=== PATIENT | female | born 1995 ===

== ENCOUNTER 2017-08-22 17:04 | Observation (INO) | payer OTHER ==
--- NOTE | 2017-08-22 17:55 | C.PDOC ---
History Of Present Illness 22-YEAR-OLD FEMALE, REFERRED BY DR RODRIGUEZ FOR EVAL. WORSENING VB X 4 DAYS. S/P TOP 05/2017. PS HAS BEEN DOING WELL UNTIL NOW. LMP 08/06. EVAL @ [facility] [place] 08/20, SP LABS "HGB 10" AND DC. VB INITIALLY RESOLVED YEST BUT RECURRED "MORE SEVERE THAN BEFORE" TODAY. +NEAR SYNCOPE. NPO SINCE 1230 EXAM +PALLOR, MILD DIST NONTOXIC ABD NEG WARM DRY REMAINDER NEG Time Seen by Provider: 08/22/17 17:43 History Per: Patient History/Exam Limitations: no limitations Past Medical History Reviewed: Historical Data, Nursing Documentation, Vital Signs Vital Signs: Last Vital Signs Temp 98.7 F 08/23/17 19:45 Pulse 99 H 08/23/17 19:45 Resp 20 08/23/17 19:45 BP 118/77 08/23/17 19:45 Pulse Ox 99 08/23/17 19:45 Family History: States: No Known Family Hx Review Of Systems Constitutional: Negative for: Fever Cardiovascular: Positive for: Light Headedness. Negative for: Chest Pain Respiratory: Negative for: Shortness of Breath Gastrointestinal: Negative for: Vomiting Genitourinary: Positive for: Vaginal Bleeding Musculoskeletal: Negative for: Back Pain Neurological: Negative for: Numbness, Headache, Dizziness Physical Exam - Physical Exam Appears: Non-toxic, No Acute Distress (MILD DISTRESS) Skin: Warm, Dry, Pale, No Rash Head: Normacephalic Eye(s): bilateral: PERRL Nose: Normal Oral Mucosa: Moist Lips: Normal Appearing Neck: Normal ROM Cardiovascular: Rhythm Regular, No Murmur Respiratory: Normal Breath Sounds, No Accessory Muscle Use Gastrointestinal/Abdominal: Soft, No Tenderness Extremity: Normal ROM, No Deformity, No Swelling Neurological/Psych: Oriented x3, Normal Speech ED Course And Treatment - Laboratory Results Result Diagrams: 08/23/17 16:24 08/22/17 18:43 Progress - Data Reviewed Data Reviewed: Lab, Diagnostic imaging Disposition Counseled Patient/Family Regarding: Diagnosis - Disposition Disposition: HOSPITALIZED Disposition Time: 19:00 Condition: STABLE - POA Present On Arrival: None - Clinical Impression Clinical Impression: DUB (dysfunctional uterine bleeding) - Scribe Statement The provider has reviewed the documentation as recorded by the Scribe (Reg Agarwal) All medical record entries made by the Scribe were at my direction and personally dictated by me. I have reviewed the chart and agree that the record accurately reflects my personal performance of the history, physical exam, medical decision making, and the department course for this patient. I have also personally directed, reviewed, and agree with the discharge instructions and disposition. Physician Patient Turnover Patient Signed Over To: Yandel Garland DO Handoff Comments: FU LABS, CT, US, DISPO
[2017-08-22] MEDS ORDERED: Sodium Chloride 0.9% 1,000 ML IV ONE (18:15)
[2017-08-22 18:47] LABS: BASO % 0.4 % (0.0-2.0); EOS % 0.1 % (0.0-4.0); HEMOGLOBIN 9.3 g/dL (11.0-16.0); LYMPH # 2.4 K/uL (1.0-4.3); LYMPH % 20.9 % (20.0-40.0); MEAN CELL VOLUME 70.4 fL (81.0-99.0); MEAN CORPUSCULAR HEMOGLOBIN 22.5 pg (27.0-31.0); MEAN CORPUSCULAR HGB CONC 31.9 g/dL (33.0-37.0); MEAN PLATELET VOLUME 8.2 fL (7.2-11.7); MONO # 0.5 K/uL (0.0-0.8); MONO % 4.6 % (0.0-10.0); NEUT # 8.4 K/uL (1.8-7.0); NRBC % 0.1 % (0.0-2.0); RBC 4.16 Mil/uL (3.80-5.20); RED CELL DISTRIBUTION WIDTH 18.4 % (11.5-14.5); WHITE BLOOD COUNT 11.3 K/uL (4.8-10.8)
[2017-08-22 18:55] LABS: INR 1.1; PROTHROMBIN TIME 11.8 SECONDS (9.7-12.2)
[2017-08-22] MEDS ORDERED: Iodixanol 320 MG/ML 100 ML BOTTLE IV ONE (18:56)
[2017-08-22 19:01] LABS: ALB/GLOB RATIO 1.1 (1.0-2.1); ALBUMIN 3.5 g/dL (3.5-5.0); CALCIUM 8.7 mg/dl (8.6-10.4); GFR AFRICAN-AMERICAN > 60; GFR NON-AFRICAN AMERICAN > 60
[2017-08-22 19:05] LABS: ALT/SGPT 16 U/L (9-52); AST/SGOT 34 U/L (14-36); BLOOD UREA NITROGEN 5 mg/dL (7-17)
--- NOTE | 2017-08-22 21:03 | CT ---
EXAM: CT Abdomen and Pelvis With Intravenous Contrast EXAM DATE/TIME: Exam ordered 08/22/2017 5:58 PM CLINICAL HISTORY: 22 years old, female; Pain; Abdominal pain; Flank; Left lower quadrant (llq); Additional info: Vag bleed, free fluid TECHNIQUE: Axial computed tomography images of the abdomen and pelvis with intravenous contrast. All CT scans at this facility use one or more dose reduction techniques, viz.: automated exposure control; ma/kV adjustment per patient size (including targeted exams where dose is matched to indication; i.e. head); or iterative reconstruction technique. Coronal and sagittal reformatted images were created and reviewed. CONTRAST: 100 mL of visipaque n320 administered intravenously. COMPARISON: No relevant prior studies available. FINDINGS: Lung bases: Unremarkable. No mass. No consolidation. ABDOMEN: Liver: Unremarkable. No mass. Gallbladder and bile ducts: Unremarkable. No calcified stones. No ductal dilation. Pancreas: Unremarkable. No mass. No ductal dilation. Spleen: Unremarkable. No splenomegaly. Adrenals: Unremarkable. No mass. Kidneys and ureters: Contrast is being excreted by both kidneys. A 7 mm simple cyst is noted in the midportion of the right kidney. No hydronephrosis. Stomach and bowel: Moderate to large amount of stool in the colon. No mucosal thickening. PELVIS: Appendix: No findings to suggest acute appendicitis. Bladder: The bladder measures 11.7 x 10 by 6 cm for a volume of 350 cc. Reproductive: Hyperdensity is noted within the uterus A small amount of fluid surrounds the left ovary. The left ovary measures approximately 3.5 x 2 by 2.6 cm. The right ovary measures 1.7 x 1.7 x 1.8 cm. The lower uterine segment is prominent. ABDOMEN and PELVIS: Intraperitoneal space: Unremarkable. No free air. No significant fluid collection. Bones/joints: No acute fracture. No dislocation. Soft tissues: There is a 1.8 cm umbilical hernia containing fat. Vasculature: Unremarkable. No abdominal aortic aneurysm. Lymph nodes: Unremarkable. No enlarged lymph nodes. IMPRESSION: 1. Hyperdensity noted within the midportion of the endometrial canal. This could represent blood products or an area of enhancement. Correlation with pelvic ultrasound recommended. 2. 7 mm simple cyst in the midportion right kidney. 3. 1.8 cm umbilical hernia containing fat. No evidence of strangulation..
--- NOTE | 2017-08-22 21:38 | US ---
EXAM: US Pelvis Complete, Transabdominal CLINICAL HISTORY: 22 years old, female; Signs and symptoms; Other: Vag bleed; Additional info: Vb TECHNIQUE: Real-time transabdominal pelvic ultrasound (complete) with image documentation. COMPARISON: No relevant prior studies available. FINDINGS: Uterus/cervix: The uterus measures 11 x 3.3 x 5 cm.. TThe endometrial stripe is heterogeneous in appearance and measures 11 mm in thickness.. No myometrial mass. Right ovary: The right ovary measures 2.7 by 2 x 2 centimeters. Blood flow seen in the right ovary on color Doppler and pulsed Doppler examination. Left ovary: The left ovary is not seen as a separate structure. Free fluid: No free fluid. Bladder: Unremarkable as visualized. Wall is normal thickness for degree of distention. IMPRESSION: 1. Heterogeneous appearance of the endometrial stripe. The endometrium is better characterized with endovaginal ultrasound. See below. 2. nonvisualization of the left ovary. EXAM: US Pelvis, Transvaginal EXAM DATE/TIME: Exam ordered 08/22/2017 5:57 PM CLINICAL HISTORY: 22 years old, female; Signs and symptoms; Other: Vag bleed; Additional info: Vb TECHNIQUE: Real-time transvaginal pelvic ultrasound (complete) with image documentation. Transvaginal imaging was used for better evaluation of the endometrium and adnexa. COMPARISON: CT - ABD PELVIS IV CONTRAST ONLY 2017-08-22 20:09 FINDINGS: Uterus/cervix: The uterus is not well-seen in a craniocaudal/sagittal dimension. On CT scan, the uterine fundus and body are displaced superiorly up out of the pelvis which likely accounts for this. There is a subendometrial cyst seen in the uterine fundus. Nabothian cyst is present within the cervix. . The endometrial stripe measures 2 cm in thickness. An area of vascularity is noted within the endometrium on color Doppler examination. The endometrial stripe is heterogeneous in appearance with cystic areas present Right ovary: The right ovary measures 2.3 x 2 x 2 cm. Blood flow seen in the radiographic color Doppler examination.. Left ovary: The left ovary measures 3.4 x 2.5 by 3.3 cm and contains a 2 cm simple cyst. Blood flow is seen in the left ovary on color Doppler examination. Free fluid: There is a small amount of free fluid in the posterior cul-de-sac.. Bladder: Empty bladder which cannot be evaluated with this probe. IMPRESSION: 1. Abnormally thickened, cystic appearing endometrium with evidence of increased vascularity. In the clinical setting of a serous sanguinous vaginal discharge 7 weeks post D&C, retained products of conception and infection are primary consideration. Molar is unlikely with a beta hCG of 4. Posttraumatic arteriovenous malformation might be considered but would be unlikely to be associated with serous vaginal discharge.THIS REPORT CONTAINS FINDINGS THAT MAY BE CRITICAL TO PATIENT CARE. The findings were verbally communicated via telephone conference with Vivain Brown at 9:38 PM EDT on 08/22/2017. The findings were acknowledged and understood.
--- NOTE | 2017-08-22 22:04 | CP.PCM.HP ---
History of Present Illness - History of Present Illness History of Present Illness: excessive vaginal bleeding 22yo with hx of suction D&C of 10 wk 05/2017. no bleeding until started over the weekend, now gushing blood intermittently. Present on Admission - Present on Admission Any Indicators Present on Admission: No Review of Systems - Constitutional Constitutional: absent: Fever - Cardiovascular Additional comments: rr - Respiratory Respiratory: absent: Dyspnea on Exertion - Gastrointestinal Gastrointestinal: Abdominal Pain, Bloating - Genitourinary Genitourinary: As Per HPI Past Patient History - Past Social History Smoking Status: Never Smoked - HEMATOLOGICAL/ONCOLOGICAL Hx Anemia: Yes - PSYCHIATRIC Hx Substance Use: No - SURGICAL HISTORY Hx Surgeries: Yes Other/Comment: ELECTIVE T.O.P. 06/12/2017 Meds Allergies/Adverse Reactions: Allergies Allergy/AdvReac Type Severity Reaction Status Date / Time No Known Allergies Allergy Verified 08/22/17 18:43 Physical Exam - Constitutional Appears: Non-toxic, No Acute Distress - Head Exam Head Exam: NORMAL INSPECTION, NORMOCEPHALIC - Eye Exam Eye Exam: Normal appearance - Neck Exam Neck exam: Positive for: Normal Inspection - Respiratory Exam Respiratory Exam: NORMAL BREATHING PATTERN - GI/Abdominal Exam GI & Abdominal Exam: Normal Bowel Sounds, Soft Additional comments: mildly tender - Exam Speculum exam: Vaginal Bleeding Bimanual exam: Uterine Enlargement, Uterine Tenderness - Extremities Exam Extremities exam: Positive for: normal inspection Results - Vital Signs Recent Vital Signs: Last Vital Signs Temp Pulse 93 H 08/22/17 17:57 Resp 16 08/22/17 17:57 BP 102/56 L 08/22/17 17:57 Pulse Ox 100 08/22/17 17:57 - Labs Result Diagrams: 08/22/17 18:43 08/22/17 18:43 Labs: Laboratory Results - last 24 hr 08/22/17 08/22/17 08/22/17 18:34 18:43 18:43 WBC 11.3 H RBC 4.16 Hgb 9.3 L Hct 29.3 L MCV 70.4 L MCH 22.5 L MCHC 31.9 L RDW 18.4 H Plt Count 360 MPV 8.2 Neut % (Auto) 74.0 Lymph % (Auto) 20.9 [place] % (Auto) 4.6 Eos % (Auto) 0.1 Baso % (Auto) 0.4 Neut # (Auto) 8.4 H Lymph # (Auto) 2.4 [place] # (Auto) 0.5 Eos # (Auto) 0.0 Baso # (Auto) 0.0 PT 11.8 INR 1.1 APTT 20 L Sodium Potassium Chloride Carbon Dioxide Anion Gap BUN Creatinine Est GFR ( Amer) Est GFR (Non-Af Amer) Random Glucose Calcium Total Bilirubin AST ALT Alkaline Phosphatase Total Protein Albumin Globulin Albumin/Globulin Ratio Beta HCG, Quant Blood Type O POSITIVE Antibody Screen Negative 08/22/17 18:43 WBC RBC Hgb Hct MCV MCH MCHC RDW Plt Count MPV Neut % (Auto) Lymph % (Auto) [place] % (Auto) Eos % (Auto) Baso % (Auto) Neut # (Auto) Lymph # (Auto) [place] # (Auto) Eos # (Auto) Baso # (Auto) PT INR APTT Sodium 136 Potassium 4.1 Chloride 103 Carbon Dioxide 22 Anion Gap 16 BUN 5 L Creatinine 0.5 L Est GFR ( Amer) > 60 Est GFR (Non-Af Amer) > 60 Random Glucose 100 Calcium 8.7 Total Bilirubin 0.4 AST 34 ALT 16 Alkaline Phosphatase 65 Total Protein 6.7 Albumin 3.5 Globulin 3.2 Albumin/Globulin Ratio 1.1 Beta HCG, Quant 4.45 Blood Type Antibody Screen Assessment & Plan - Assessment and Plan (Free Text) Assessment: excessive vaginal bleeding Plan: differential retained POC, endometritis, subinvolution of implantation site retained POC is lower on the differential as patient reports suction D&C at 10 weeks done under ultrasound guidance at outside facility Monitor inpatient Regular diet until AM, NPO, ivf bedrest except bathroom priveleges iv abx for infection prophylaxis iv estrogen and provera reassess in AM, possibility of still needing D&C but prefer under hysteroscopy and patient stabilizes, if bleeding stabilizes and only clots can consider uterotonics - Date & Time Date: 08/22/17 Time: 22:25
[2017-08-22] MEDS ORDERED: Ciprofloxacin 400mg/200ml D5W 400 MG/200 ML BAG IVPB ONE (22:10)
[2017-08-22] MEDS: Ciprofloxacin 400mg/200ml D5W 400 MG/200 ML BAG IVPB SCH (22:20)
[2017-08-22] MEDS: Sodium Chloride 0.9% 1,000 ML IV SCH (22:21)
[2017-08-22] MEDS: metroNIDAZOLE IV 500 mg/100 ml 500 MG/100 ML BAG IVPB SCH (23:39)
[2017-08-22] MEDS ORDERED: CONJUGATED ESTROGENS IV ONE (23:40)
[2017-08-22] MEDS ORDERED: SODIUM CHLORIDE 0.9% IV ONE (23:40)
[2017-08-23 00:37] VITALS: O2SAT 99
[2017-08-23 09:25] LABS: BASO # 0.1 K/uL (0.0-0.2); BASO % 0.6 % (0.0-2.0); EOS % 0.3 % (0.0-4.0); HEMOGLOBIN 7.8 g/dL (11.0-16.0); LYMPH # 2.8 K/uL (1.0-4.3); LYMPH % 28.6 % (20.0-40.0); MEAN CELL VOLUME 70.3 fL (81.0-99.0); MEAN CORPUSCULAR HGB CONC 32.7 g/dL (33.0-37.0); MEAN PLATELET VOLUME 8.3 fL (7.2-11.7); MONO # 0.7 K/uL (0.0-0.8); MONO % 7.3 % (0.0-10.0); NEUT # 6.2 K/uL (1.8-7.0); NEUT % 63.2 % (50.0-75.0); RBC 3.39 Mil/uL (3.80-5.20); RED CELL DISTRIBUTION WIDTH 18.1 % (11.5-14.5); WHITE BLOOD COUNT 9.8 K/uL (4.8-10.8)
[2017-08-23] MEDS: Ciprofloxacin 400mg/200ml D5W 400 MG/200 ML BAG IVPB SCH (09:36)
[2017-08-23] MEDS: metroNIDAZOLE IV 500 mg/100 ml 500 MG/100 ML BAG IVPB SCH (11:05)
[2017-08-23] MEDS: Sodium Chloride 0.9% 1,000 ML IV SCH (11:10)
[2017-08-23] MEDS ORDERED: Morphine 4 MG/ML VIAL IVP PRN (11:15)
[2017-08-23 16:30] LABS: BASO % 0.3 % (0.0-2.0); HEMOGLOBIN 8.5 g/dL (11.0-16.0); LYMPH # 2.4 K/uL (1.0-4.3); MEAN CELL VOLUME 69.7 fL (81.0-99.0); MEAN CORPUSCULAR HEMOGLOBIN 22.9 pg (27.0-31.0); MEAN CORPUSCULAR HGB CONC 32.8 g/dL (33.0-37.0); MEAN PLATELET VOLUME 7.8 fL (7.2-11.7); MONO # 0.4 K/uL (0.0-0.8); MONO % 3.9 % (0.0-10.0); NEUT # 7.6 K/uL (1.8-7.0); NEUT % 72.8 % (50.0-75.0); RBC 3.7 Mil/uL (3.80-5.20); RED CELL DISTRIBUTION WIDTH 18.3 % (11.5-14.5); WHITE BLOOD COUNT 10.4 K/uL (4.8-10.8)
[2017-08-23 20:05] VITALS: BP 118/77; PULSE 99; RESP 20; TEMP 98.7
--- NOTE | 2017-08-23 20:32 | CP.PCM.PN ---
Subjective - Date & Time of Evaluation Date of Evaluation: 08/23/17 Time of Evaluation: 10:00 - Subjective Subjective: gushing blood has stopped, moderate bleeding feels better Objective - Vital Signs/Intake and Output Vital Signs (last 24 hours): Temp Pulse Resp BP Pulse Ox 98.7 F 99 H 20 118/77 99 08/23/17 19:45 08/23/17 19:45 08/23/17 19:45 08/23/17 19:45 08/23/17 19:45 - Medications Medications: Current Medications Sodium Chloride (Sodium Chloride 0.9%) 1,000 mls @ 75 mls/hr IV .[id number] [facility] Last Admin: 08/23/17 11:10 Dose: 75 mls/hr Metronidazole (Flagyl) 500 mg in 100 mls @ 100 mls/hr IVPB Q12H [facility] PRN Reason: Protocol Last Admin: 08/23/17 11:05 Dose: 100 mls/hr Medroxyprogesterone Acetate (Provera) 10 mg PO BID [facility] Last Admin: 08/23/17 17:13 Dose: 10 mg Methylergonovine Maleate (Methergine) 0.2 mg PO Q8H [facility] Last Admin: 08/23/17 17:21 Dose: 0.2 mg Metoclopramide HCl (Reglan) 10 mg IVP Q8H PRN PRN Reason: Nausea/Vomiting Last Admin: 08/23/17 07:57 Dose: 10 mg Morphine Sulfate (Morphine) 1 mg IVP Q8H PRN PRN Reason: Pain, severe (8-10) Ondansetron HCl (Zofran Inj) 4 mg IVP Q6H PRN PRN Reason: nausea Last Admin: 08/23/17 12:36 Dose: 4 mg - Labs Labs: 08/23/17 16:24 08/22/17 18:43 PT 11.8 SECONDS (9.7-12.2) 08/22/17 18:43 INR 1.1 08/22/17 18:43 APTT 20 SECONDS (21-34) L 08/22/17 18:43 - Constitutional Appears: No Acute Distress - Head Exam Head Exam: NORMAL INSPECTION (f), NORMOCEPHALIC - Eye Exam Eye Exam: Normal appearance - Respiratory Exam Respiratory Exam: NORMAL BREATHING PATTERN - Cardiovascular Exam Cardiovascular Exam: REGULAR RHYTHM - GI/Abdominal Exam GI & Abdominal Exam: Soft. absent: Tenderness (bedside ultrasound reveals improvement in freefluid in uterus, still thickened lining at top of fundus) Assessment and Plan - Assessment and Plan (Free Text) Assessment: acute vaginal bleeding stable, hgb stable minimal clots left medical D&C with methergine and cytotec repeat cbc if bleeding improves, cbc stable, d/c later today
== END 2017-08-23 21:10 | disposition home or self-care (01) ==
LOC: C.ER 17:04 → C.4M 21:39 → INTOOBSV 21:39
PROVIDERS: ADMIT Obstetrics & Gynecology; ATTEND Obstetrics & Gynecology
DX: N93.8 Other specified abnormal uterine and vaginal bleeding (principal)
CPT/HCPCS: 36415; 74177; 76830; 76856; 80053; 84702; 85025; 85610; 85730; 86850; 86900; 96361; 96365; 96367; 96375; 99284; G0378; J0744; J1410; J2405; J2765; J7030; Q9967